=== PATIENT | male | born 1960 | race Caucasian/White ===

== ENCOUNTER 2017-03-13 07:45 | Emergency (ER) | payer BC ==
[~2017-03-13] VITALS: Ht 185.4 cm; Wt 81.8 kg
[2017-03-13 10:07] VITALS: BP 128/78
== END 2017-03-13 10:08 | disposition home or self-care (01) ==
LOC: EMS 07:54
DX: M20.011 Mallet finger of right finger(s) (principal); F17.210 Nicotine dependence, cigarettes, uncomplicated; F12.90 Cannabis use, unspecified, uncomplicated
CPT/HCPCS: 99284